=== PATIENT | female | born 1980 | race Caucasian/White ===

== ENCOUNTER 2021-04-03 15:14 | Emergency (ER) | payer OTHER ==
[~2021-04-03] VITALS: Ht 162.6 cm; Wt 59.1 kg
[2021-04-03 16:42] LABS: BASOPHILS % (AUTO) 0.3 % (0.0-2.0); EOSINOPHILS % (AUTO) 0.2 % (1.0-6.0); HEMATOCRIT 28.4 % (36-46); HEMOGLOBIN 7.8 g/dL (12.0-16.0); LYMPHOCYTES # (AUTO) 1.1 K/uL (1.0-4.8); LYMPHOCYTES % (AUTO) 8.4 % (22.0-44.0); MEAN CORPUSCULAR HEMOGLOBIN 15.8 pg (26.0-34.0); MEAN CORPUSCULAR HGB CONC 27.4 G/dL (31.0-37.0); MEAN CORPUSCULAR VOLUME 58 fL (80-100); MONOCYTES # (AUTO) 0.9 K/uL (0.1-1.0); MONOCYTES % (AUTO) 6.5 % (2.0-9.0); NEUTROPHILS # (AUTO) 11.3 K/uL (1.8-7.7); NEUTROPHILS % (AUTO) 84.6 % (40.0-70.0); PLATELET COUNT (AUTO) 390 K/uL (150-450); RED BLOOD CELL COUNT(AUTO) 4.92 MIL/uL (4.00-5.20); RED CELL DISTRIBUTION WIDTH 19.7 % (11.5-14.5)
[2021-04-03 16:52] LABS: ANION GAP 13 mmol/L (8-16); CALCIUM, TOTAL 8.4 mg/dL (8.8-10.5); CARBON DIOXIDE 25 mmol/L (22-29); CHLORIDE 103 mmol/L (98-107); CREATININE 0.58 mg/dL (0.60-1.30); GLOMERULAR FILTR. RATE CALC > 60 mL/min (>60); GLUCOSE,RANDOM 98 mg/dL (70-110); POTASSIUM 4.2 mmol/L (3.5-5.1); SODIUM SERUM 141 mmol/L (136-145); UREA NITROGEN, BLOOD 19 mg/dL (7-18)
[2021-04-03 17:17] LABS: ALANINE AMINOTRANSFERASE 21 U/L (12-78); ALBUMIN 4.1 g/dL (3.4-5.0); ALKALINE PHOSPHATASE 55 U/L (46-116); ASPARTATE AMINOTRANSFERASE 17 U/L (15-37); BILIRUBIN,TOTAL 0.4 mg/dL (0.1-1.0); HCG,QUANTITATIVE < 1 mIU/mL (0-6); TOTAL PROTEIN, SERUM 8.1 g/dL (6.4-8.2)
[2021-04-03 17:24] VITALS: BP 121/79
== END 2021-04-03 17:42 | disposition home or self-care (01) ==
LOC: EMS 15:14
DX: D64.9 Anemia, unspecified (principal); R06.02 Shortness of breath; R42 Dizziness and giddiness; Z90.89 Acquired absence of other organs; Z88.8 Allergy status to other drugs, medicaments and biological substances
CPT/HCPCS: 80053; 84702; 85025; 86850; 86900; 86901; 93005; 99284

== ENCOUNTER 2022-05-11 10:22 | Emergency (ER) | payer OTHER ==
[~2022-05-11] VITALS: Ht 162.6 cm; Wt 60.0 kg
[2022-05-11] MEDS ORDERED: SODIUM CHLORIDE 0.9% 1,000 ML IV ONE (12:00)
[2022-05-11 12:02] LABS: BASOPHILS % (AUTO) 0.3 % (0.0-2.0); EOSINOPHILS % (AUTO) 0.6 % (1.0-6.0); HEMATOCRIT 36.6 % (36-46); HEMOGLOBIN 11.8 g/dL (12.0-16.0); LYMPHOCYTES # (AUTO) 0.9 K/uL (1.0-4.8); MEAN CORPUSCULAR HEMOGLOBIN 24.7 pg (26.0-34.0); MEAN CORPUSCULAR HGB CONC 32.2 G/dL (31.0-37.0); MEAN CORPUSCULAR VOLUME 77 fL (80-100); MONOCYTES # (AUTO) 0.7 K/uL (0.1-1.0); MONOCYTES % (AUTO) 10.3 % (2.0-9.0); NEUTROPHILS # (AUTO) 4.7 K/uL (1.8-7.7); NEUTROPHILS % (AUTO) 74.8 % (40.0-70.0); PLATELET COUNT (AUTO) 330 K/uL (150-450); RED BLOOD CELL COUNT(AUTO) 4.78 MIL/uL (4.00-5.20); RED CELL DISTRIBUTION WIDTH 15.2 % (11.5-14.5)
[2022-05-11 12:14] LABS: ANION GAP 8 mmol/L (8-16); CALCIUM, TOTAL 9.3 mg/dL (8.8-10.5); CARBON DIOXIDE 26 mmol/L (22-29); CHLORIDE 101 mmol/L (98-107); CREATININE 0.76 mg/dL (0.60-1.30); GLUCOSE,RANDOM 93 mg/dL (70-110); SODIUM SERUM 135 mmol/L (136-145); UREA NITROGEN, BLOOD 10 mg/dL (7-18)
[2022-05-11 12:15] LABS: GLOMERULAR FILTR. RATE CALC > 60 mL/min (>60)
[2022-05-11 12:22] LABS: ALANINE AMINOTRANSFERASE 22 U/L (12-78); ALBUMIN 3.8 g/dL (3.4-5.0); ALKALINE PHOSPHATASE 69 U/L (46-116); ASPARTATE AMINOTRANSFERASE 17 U/L (15-37); BILIRUBIN,TOTAL 0.3 mg/dL (0.1-1.0); TOTAL PROTEIN, SERUM 8.4 g/dL (6.4-8.2)
[2022-05-11 12:50] LABS: COVID AG,FIA SOURCE NASAL SWAB
[2022-05-11] MEDS ORDERED: ONDA-104 PO (13:32)
[2022-05-11 14:09] VITALS: BP 122/68
== END 2022-05-11 14:06 | disposition home or self-care (01) ==
LOC: EMS 10:22
DX: R19.7 Diarrhea, unspecified (principal); Z88.8 Allergy status to other drugs, medicaments and biological substances; Z20.822 Contact with and (suspected) exposure to COVID-19
CPT/HCPCS: 80053; 85025; 96360; 99283; 36415-L1; 36415-TC

== ENCOUNTER 2023-11-10 15:21 | Emergency (ER) | payer OTHER ==
[~2023-11-10] VITALS: Ht 165.1 cm; Wt 61.4 kg
[~2023-11-10 15:21] MED LIST: ONDA-104 PO
[2023-11-10 15:35] VITALS: BP 126/73; PULSE 79; RESP 18; TEMP 98.4
[2023-11-10 16:29] LABS: ANION GAP 8 mmol/L (8-16); BASOPHILS % (AUTO) 0.2 % (0.0-2.0); CARBON DIOXIDE 29 mmol/L (22-29); CHLORIDE 101 mmol/L (98-107); CREATININE 0.66 mg/dL (0.60-1.30); EOSINOPHILS % (AUTO) 0.5 % (1.0-6.0); GLOMERULAR FILTR. RATE CALC > 60 mL/min (>60); GLUCOSE,RANDOM 92 mg/dL (70-110); HEMATOCRIT 39.4 % (36-46); HEMOGLOBIN 12.9 g/dL (12.0-16.0); LYMPHOCYTES # (AUTO) 1.6 K/uL (1.0-4.8); LYMPHOCYTES % (AUTO) 18.5 % (22.0-44.0); MEAN CORPUSCULAR HEMOGLOBIN 26.4 pg (26.0-34.0); MEAN CORPUSCULAR HGB CONC 32.8 G/dL (31.0-37.0); MEAN CORPUSCULAR VOLUME 80 fL (80-100); MONOCYTES # (AUTO) 0.5 K/uL (0.1-1.0); MONOCYTES % (AUTO) 5.9 % (2.0-9.0); NEUTROPHILS # (AUTO) 6.6 K/uL (1.8-7.7); NEUTROPHILS % (AUTO) 74.9 % (40.0-70.0); PLATELET COUNT (AUTO) 284 K/uL (150-450); POTASSIUM 4.3 mmol/L (3.5-5.1); RED BLOOD CELL COUNT(AUTO) 4.89 MIL/uL (4.00-5.20); RED CELL DISTRIBUTION WIDTH 24.6 % (11.5-14.5); SODIUM SERUM 138 mmol/L (136-145); UREA NITROGEN, BLOOD 21 mg/dL (7-18); WHITE BLOOD COUNT (AUTO) 8.8 K/uL (4.5-11.0)
[2023-11-10 16:35] LABS: ALANINE AMINOTRANSFERASE 19 U/L (12-78); ALBUMIN 4.3 g/dL (3.4-5.0); ALKALINE PHOSPHATASE 53 U/L (46-116); ASPARTATE AMINOTRANSFERASE 15 U/L (15-37); BILIRUBIN,TOTAL 0.2 mg/dL (0.1-1.0); TOTAL PROTEIN, SERUM 7.7 g/dL (6.4-8.2)
[2023-11-10 16:47] LABS: RBC MORPHOLOGY COMMENT ABNORMAL RBC MORPH
[2023-11-10 16:57] LABS: COVID AG,FIA SOURCE NASAL SWAB
[2023-11-10 17:41] LABS: SARS-COV2 (COVID) ANTIGEN,FIA Negative (Negative)
[2023-11-10 17:42] LABS: INFLUENZA TYPE A NEGATIVE FOR TYPE A (NEGATIVE); INFLUENZA TYPE B NEGATIVE FOR TYPE B (NEGATIVE)
[2023-11-10] MEDS ORDERED: ACET-3385 PO (17:49)
[2023-11-10] MEDS: ACETAMINOPHEN 325 MG TABLET PO ONE (19:06)
== END 2023-11-10 19:11 | disposition home or self-care (01) ==
LOC: EMS 15:23
DX: R51.9 Headache, unspecified (principal); R42 Dizziness and giddiness; Z90.49 Acquired absence of other specified parts of digestive tract; Z98.890 Other specified postprocedural states; Z20.822 Contact with and (suspected) exposure to COVID-19
CPT/HCPCS: 80053; 84703; 85025; 87804; 93005; 99284